=== PATIENT | female | born 1990 | race Caucasian/White ===

== ENCOUNTER 2020-03-29 11:59 | Inpatient (IN) | payer OTHER ==
[2020-03-29 12:48] VITALS: BMI 23.3
[2020-03-29] MEDS ORDERED: Lidocaine 1% (PF) 30 ML VIAL SC PRN (13:12)
[2020-03-29] MEDS ORDERED: Ibuprofen 800 MG TAB PO PRN (13:12)
[2020-03-29] MEDS ORDERED: NS / Oxytocin 40 units/1000ml 1,000 ML IV PRN (13:12)
[2020-03-29] MEDS ORDERED: hydrALAZINE 20 MG/ML VIAL SLOW IVP PRN (13:12)
[2020-03-29] MEDS ORDERED: Ondansetron PF 4 MG/2 ML Vial IVP PRN (13:12)
[2020-03-29] MEDS ORDERED: Promethazine HCl 25 MG/ML VIAL IM PRN (13:12)
[2020-03-29] MEDS ORDERED: HYDROcodone/Acetaminophen 5/325 mg Tablet PO PRN ×2 (13:12)
[2020-03-29] MEDS ORDERED: Misoprostol 200 MCG TAB ONE ×2 (13:17→13:18)
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
[2020-03-29 13:44] LABS: Hemoglobin 13.6 g/dL (12.0-16.0); Mean Corpuscular HGB CONC 34.4 g/dL (32.0-36.0); Mean Corpuscular Hemoglobin 33.6 pg (27.0-31.0); Mean Corpuscular Volume 97.4 fL (78.0-98.0); Mean Platelet Volume 7.1 fL (7.4-10.4); Platelet Count 218 thou/uL (130-400); RBC Distribution Width 12.1 % (11.5-14.5); Red Blood Cell (RBC) Count 4.07 mill/uL (4.20-5.40); White Blood Cell (WBC) Count 12.1 thou/uL (4.8-10.8)
[2020-03-29 13:51] LABS: INR-International Normal Ratio 0.9; PTT 27.2 sec (22.9-36.1); Prothrombin Time 12.3 sec (12.0-14.7)
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
[2020-03-29 14:21] LABS: Syphilis Antibody Nonreactive (Nonreactive); Syphilis Antibody Index 0.03 S/CO (<1.00 Non-Reactive)
[2020-03-29 14:27] LABS: DRVVT Confirm 26.1; DRVVT Ratio 1.2 Ratio (1.2 or Less)
[2020-03-29 14:32] LABS: HBSAg Index 0.09 S/CO (0-0.99); Hep B Surf Ag Non-Reactive S/CO (NonReactive); Thyroid Stimulating Hormone 1.3522 uIU/mL (0.35-4.94)
[2020-03-29 14:40] LABS: Factor VIII Test 215.7 % ACTIVE (56-157)
[2020-03-29 14:48] LABS: HEX PHOS LA Tube 1 43.9 SEC; HEX PHOS LA Tube 2 40.8 SEC; Hexagonal Phospholipid Neut 3.1 SEC (0-8.0)
[2020-03-29 16:56] LABS: Cardiolipin IgA Ab 1.3 APL-U/mL (<14 Negative); Cardiolipin IgG Ab 1.2 GPL-U/mL (<10 Negative); Cardiolipin IgM Ab 1.3 MPL-U/mL (<10 Negative); EliA APS New Method **** NEW METHOD ****; beta-2-Glycoprotein I IgA Ab 1.3 U/mL (<7 Negative); beta-2-Glycoprotein I IgG Ab Less than 0.6 U/mL (<7 Negative); beta-2-Glycoprotein I IgM Abs 3.3 U/mL (<7 Negative)
[2020-03-29] MEDS: Misoprostol 100 MCG TAB VAG SCH (19:38)
[2020-03-29] MEDS: Acetaminophen 500 MG TAB PO PRN (21:26)
[2020-03-29] MEDS: Butorphanol Tartrate 1 MG/ML VIAL SLOW IVP PRN (22:49)
[2020-03-30] MEDS: Misoprostol 100 MCG TAB VAG SCH ×4 (01:57→12:29)
[2020-03-30] MEDS: Butorphanol Tartrate 1 MG/ML VIAL SLOW IVP PRN ×7 (02:18→10:43)
[2020-03-30] MEDS: Acetaminophen 500 MG TAB PO PRN (08:14)
[2020-03-30] MEDS ORDERED: Bupivacaine 0.25% HCL 30 ML VIAL ONE (09:08)
[2020-03-30] MEDS ORDERED: EPHEDRINE 25 MG/5 ML SYRINGE ONE (09:08)
[2020-03-30] MEDS ORDERED: traMADol HCl 50 MG TAB PO SCH (09:15)
[2020-03-30 10:25] LABS: Factor IX Test 111.3 % ACTIVE (56-149)
[2020-03-30] MEDS ORDERED: Ondansetron PF 4 MG/2 ML Vial IVP PRN ×3 (10:25→13:53)
[2020-03-30] MEDS ORDERED: Promethazine HCl 25 MG/ML VIAL IM PRN ×2 (10:25→11:46)
[2020-03-30] MEDS ORDERED: hydrALAZINE 20 MG/ML VIAL SLOW IVP PRN ×2 (10:25→13:53)
[2020-03-30 11:04] LABS: Hemoglobin 13.8 g/dL (12.0-16.0); Mean Corpuscular HGB CONC 33.2 g/dL (32.0-36.0); Mean Corpuscular Hemoglobin 32.7 pg (27.0-31.0); Mean Corpuscular Volume 98.4 fL (78.0-98.0); Mean Platelet Volume 7.2 fL (7.4-10.4); Platelet Count 202 thou/uL (130-400); Red Blood Cell (RBC) Count 4.22 mill/uL (4.20-5.40); White Blood Cell (WBC) Count 16.9 thou/uL (4.8-10.8)
[2020-03-30] MEDS ORDERED: Fentanyl 4 mcg/Bup 0.1% Cadd 100 ML ONE (11:07)
[2020-03-30 11:36] LABS: HBSAg Index 0.14 S/CO (0-0.99); Hep B Surf Ag Non-Reactive S/CO (NonReactive)
[2020-03-30 11:41] LABS: Syphilis Antibody Nonreactive (Nonreactive); Syphilis Antibody Index 0.03 S/CO (<1.00 Non-Reactive)
[2020-03-30] MEDS ORDERED: Naloxone HCl 0.4 mg/ml Vial IVP PRN ×2 (11:46)
[2020-03-30] MEDS ORDERED: Acetaminophen 325 MG TAB PO PRN (11:46)
[2020-03-30] MEDS ORDERED: Lactated Ringer's 500 ML IV PRN (11:46)
[2020-03-30] MEDS ORDERED: diphenhydrAMINE 50 MG/ML VIAL IVP PRN (11:46)
[2020-03-30] MEDS ORDERED: EPHEDRINE 25 MG/5 ML SYRINGE SLOW IVP PRN (11:46)
[2020-03-30] MEDS ORDERED: Communication Order-Pharmacy FS SCH (12:00)
[2020-03-30] MEDS ORDERED: Fentanyl 4 mcg/Bupivacaine 0.1% Cassette 100 ML EPIDURAL SCH (12:00)
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
--- NOTE | 2020-03-30 13:51 | PDOC.OPDEL ---
OB Operative/Delivery Note Delivery Dr/Surgeon: Geo Pre-Delivery Diagnosis: medically indicated induction ( demise 23 weeks) Weeks gestation: 23 Anesthesia: epidural - Findings A Sex: male - Additional Findings/Plan Placenta delivered: spontaneous Repaired Obstetrical Laceration: none Estimated blood loss: 200ml Compilations/Other Findings: normal male fetus, age appropriate, some brusing/edema around scalp but no obvious defects or trauma, normal appearing placenta Post delivery plan: routine recovery (plan for DC home this PM)
[2020-03-30] MEDS ORDERED: HYDROcodone/Acetaminophen 5/325 mg Tablet PO PRN ×4 (13:53→14:02)
[2020-03-30] MEDS ORDERED: Benzocaine-Menthol 82.5 ML CAN TOP PRN (13:53)
[2020-03-30] MEDS ORDERED: Ibuprofen 800 MG TAB PO SCH (14:00)
[2020-03-30] MEDS ORDERED: NS / Oxytocin 40 units/1000ml 1,000 ML IV SCH (14:00)
== END 2020-03-30 18:12 | disposition home or self-care (01) | DRG 807 ==
LOC: L&D/OP 11:59 → L&D-LIB 03-30 10:25
PROVIDERS: ADMIT Obstetrics & Gynecology; ATTEND Obstetrics & Gynecology
PROC: 10E0XZZ Delivery of Products of Conception, External Approach (ICD-10-PCS; principal; 2020-03-30)
PROC: 3E0P7VZ Introduction of Hormone into Female Reproductive, Via Natural or Artificial Opening (ICD-10-PCS; 2020-03-30)
DX: O36.4XX0 Maternal care for intrauterine death, not applicable or unspecified (principal); Z37.1 Single stillbirth; O9A.212 Injury, poisoning and certain other consequences of external causes complicating pregnancy, second trimester; Z3A.23 23 weeks gestation of pregnancy; S70.02XA Contusion of left hip, initial encounter; W55.12XA Struck by horse, initial encounter
CPT/HCPCS: 36415; 76815; 84443; 85027; 85240; 85250; 85598; 85613; 86146; 86147; 86780; 86850; 86900; 86901; 87340; J0595; J2001; J2405; S0020